=== PATIENT | female | born 1985 | race Caucasian/White ===

== ENCOUNTER 2017-06-25 19:21 | Day surgery (SDC) | payer BC ==
[2017-06-25 20:00] VITALS: BP 119/75; TEMP 98.6; BMI 28.9
[2017-06-25] MEDS ORDERED: Morphine 10 MG/ML VIAL IM PRN (20:53)
--- NOTE | 2017-06-26 00:28 | PRG ---
DATE OF SERVICE: 06/25/2017 PRIMARY OB: Lily Soto MD CHIEF COMPLAINT: Abdominal pains. HISTORY OF PRESENT ILLNESS: The patient is a 31-year-old female with an intrauterine at 36 weeks and 4 days, who is presenting to Labor and Delivery with a 1-day history of abdominal pa ins that she reports is being moderately intense. The patient denies any vaginal bleeding or leakage of fluid. She has been nauseous and having infrequent vomiting over the last several weeks. She den ies any fever, fall, headache, chest pain, or shortness of breath. She has had some constipation and has had a rash on her back during this that seems to have improved. Denies any hip proble ms, muscle weakness, vaginal bleeding, urinary urgency. PAST MEDICAL HISTORY: Seasonal allergies. PAST SURGICAL HISTORY: She has had a breast reduction surgery. She has had an appendix removed and had a lumpectomy. SOCIAL HISTORY: Reports alcohol use before the . ALLERGIES: No known drug allergies. MEDICATIONS: vitamins. OB LABORATORY DATA: Blood type is B positive, antibody screen is negative. HIV nonreactive. In the first and third trimester, RPR nonreactive. In the first and third trimester, hepatitis B surface a ntigen nonreactive. She is rubella immune. Her one-hour Glucola was 143 with a normal 3-hour test. REVIEW OF SYSTEMS: Per HPI. PHYSICAL EXAMINATION: VITAL SIGNS: Blood pressure 119/75, heart rate of 109, respiratory rate of 18, temperature 98.6. GENERAL: She appears to be in no acute distress. She is alert and oriented, and cooperative and ple asant to interact with. HEENT: Head is normocephalic, atraumatic. LUNGS: Clear to auscultation bilaterally. HEART: Regular rate and rhythm. ABDOMEN: Soft in between contractions and gravid. EXTREMITIES: Nontender, nonedematous. CERVICAL EXAM: Per nursing staff, it is closed and thick with -2 station, which is unchanged after a n hour and 15 minutes. heart tracing performed for threatened labor. Baseline is noted to be in the 130s with moderat e long-term variability, positive accelerations and no decelerations. Contractions are irregular, la sting anywhere from 2 to 4 or 6 minutes. ASSESSMENT AND PLAN: The patient is a 31-year-old female with an intrauterine at 36 weeks and 4 days and threatened labor with a closed cervix. Fetus is reassuring. The patient has be en given 6 mg of morphine IM to help with comfort with the contractions. She lives here locally and has had no change in her cervix, remained closed and thick after an hour and is comfortable going shira e with pain control with instructions to return, should things become more frequent or worsen or for water breaks or has any other concerns. Fetus has a category 1 tracing and reactive NST.
== END 2017-06-25 21:50 | disposition home or self-care (01) ==
LOC: L&D/OP 19:21
PROVIDERS: ATTEND Student in an Organized Health Care Education/Training Program
DX: O99.89 Other specified diseases and conditions complicating pregnancy, childbirth and the puerperium (principal); R10.9 Unspecified abdominal pain; O99.52 Diseases of the respiratory system complicating childbirth; J30.2 Other seasonal allergic rhinitis; Z3A.36 36 weeks gestation of pregnancy; Z79.899 Other long term (current) drug therapy; Z88.0 Allergy status to penicillin
CPT/HCPCS: J2270

== ENCOUNTER 2017-07-14 10:10 | Inpatient (IN) | payer BC, OTHER, SELFPAY ==
--- NOTE | 2017-07-14 08:37 | PDOC.LDHP ---
Labor and Delivery H&P Chief complaint: scheduled section HPI: 32yo at 39w2d by LMP here for PCS due to suspected CPD and macrosomia. No complaints. Current gestational age (weeks): 39 Due date: 07/19/17 Dating criteria: last menstrual period Grav: 1 Para: 0 Current complications: none Abnormal US findings: No Current medications: pre-fabricio vitamins Previous surgical history: appendectomy, other (breast reduction, breast lumpectomy) Allergies/Adverse Reactions: Allergies Allergy/AdvReac Type Severity Reaction Status Date / Time Penicillins Allergy Rash Verified 07/14/17 11:08 Social history: none - Physical Exam Vital signs reviewed and normal: yes General: NAD Heart: RRR Lungs: CTAB Abdomen: gravid Extremeties: no edema FHT: category 1 - OB Labs Blood type: B RH: positive Antibody Screen: negative HIV: negative RPR: negative HEPSAg: negative 1 hour GCT: positive 3 hour GTT: negative GBS: negative Rubella: immune - Assessment L&D Assessment: scheduled primary section - Plan Plan: admit to L&D, to OR for section, informed consent obtained, anesthesia consult for pain management
[2017-07-14 11:14] VITALS: BMI 29.0
[2017-07-14] MEDS ORDERED: Oxytocin 10 UNITS/ML VIAL ONE ×3 (11:40→12:42)
[2017-07-14] MEDS ORDERED: PHENYLEPHRINE-NS 100 MCG/ML 10 ML SYRINGE ONE (11:40)
[2017-07-14] MEDS ORDERED: Ondansetron HCl/PF 4 MG/2 ML Vial ONE ×4 (11:40→18:03)
[2017-07-14] MEDS ORDERED: Morphine PF 1 MG/ML SYR ONE (11:40)
[2017-07-14] MEDS ORDERED: ePHEDrine/0.9% NaCl/PF SYRINGE 50 mg/10 ml ONE ×2 (11:40→18:03)
[2017-07-14] MEDS ORDERED: Dexamethasone 4 mg/ml Vial ONE (11:40)
[2017-07-14] MEDS ORDERED: Ketorolac Tromethamine 30 MG/ML VIAL ONE ×2 (11:41→18:03)
[2017-07-14] MEDS ORDERED: HYDROmorphone 2 MG/ML VIAL SLOW IVP PRN (12:02)
[2017-07-14] MEDS ORDERED: Ondansetron HCl/PF 4 MG/2 ML Vial IVP PRN ×2 (12:02)
[2017-07-14] MEDS ORDERED: Meperidine HCl/PF 25 MG/ML VIAL SLOW IVP PRN (12:02)
[2017-07-14] MEDS ORDERED: Naloxone HCl 0.4 mg/ml Vial IVP PRN ×2 (12:02)
[2017-07-14] MEDS ORDERED: Eucerin (Mineral Oil/Petrolatum,White) 30 gm Jar TOP PRN (12:02)
[2017-07-14] MEDS ORDERED: Promethazine HCl 25 MG/ML VIAL IM PRN (12:02)
[2017-07-14] MEDS ORDERED: diphenhydrAMINE 50 MG/ML VIAL IVP PRN (12:02)
[2017-07-14] MEDS ORDERED: Naloxone HCl 0.4 mg/ml Vial IV PRN (12:02)
[2017-07-14] MEDS ORDERED: Promethazine HCl 25 MG SUPP PR PRN (12:02)
[2017-07-14] MEDS ORDERED: Ketorolac Tromethamine 30 MG/ML VIAL IVP SCH (12:15)
[2017-07-14] MEDS ORDERED: CEFAZOLIN 1 GM VIAL ONE (12:15)
[2017-07-14] MEDS ORDERED: Communication Order-Pharmacy FS SCH (12:15)
[2017-07-14] MEDS ORDERED: Carboprost 250 MCG/ML AMP ONE (12:24)
[2017-07-14] MEDS ORDERED: Methylergonovine 0.2 MG/ML VIAL ONE ×2 (12:24)
[2017-07-14] MEDS ORDERED: Promethazine HCl 25 MG/ML VIAL ONE (12:32)
[2017-07-14 12:54] LABS: Mean Corpuscular HGB CONC 34.8 g/dL (32.0-36.0); Mean Corpuscular Hemoglobin 32.5 pg (27.0-31.0); Mean Corpuscular Volume 93.5 fl (81.0-99.0); Mean Platelet Volume 7.8 fL (7.4-10.4); Platelet Count 153 thou/uL (130-400); RBC Distribution Width 13.4 % (11.5-14.5); Red Blood Cell (RBC) Count 3.68 mill/uL (4.20-5.40)
[2017-07-14] MEDS ORDERED: Diphenoxylate HCl/Atropine Tablet PO PRN (13:02)
--- NOTE | 2017-07-14 13:03 | PDOC.OPDEL ---
OB Operative/Delivery Note Delivery Dr/Surgeon: Charles Assist: Linn Pre-Delivery Diagnosis: scheduled section Procedure/Post Delivery Dx: primary low transverse CS Weeks gestation: 39 Anesthesia: spinal - Findings A Sex: male Weight: 8 lb 7 oz - 1 min: 8 - 5 min: 9 - Additional Findings/Plan Placenta delivered: spontaneous findings: low transverse hysterotomy without extension, normal uterus, normal tubes, normal ovaries Estimated blood loss: 1000 Compilations/Other Findings: uterine atony, improved with pitocin and 1 dose hemabate 0.2mcg Post delivery plan: routine recovery
[2017-07-14 13:11] LABS: HBSAg Index 0.17 S/CO (0-0.99); Hep B Surf Ag Non-Reactive S/CO (NonReactive); Syphilis Antibody Nonreactive (Nonreactive); Syphilis Antibody Index 0.08 S/CO (<1.00 Non-Reactive)
[2017-07-14] MEDS ORDERED: Carboprost 250 MCG/ML AMP IM SCH (13:15)
[2017-07-14] MEDS ORDERED: Meperidine HCl/PF 25 MG/ML VIAL ONE (13:55)
--- NOTE | 2017-07-14 14:06 | OP ---
DATE OF PROCEDURE: 07/14/2017 PREOPERATIVE DIAGNOSES: 1. Intrauterine at 39 weeks and 2 days. 2. Suspected cephalopelvic disproportion and macrosomia. 3. Elective primary section. POSTOPERATIVE DIAGNOSES: 1. Intrauterine at 39 weeks and 2 days. 2. Suspected cephalopelvic disproportion and macrosomia. 3. Elective primary section. PROCEDURE: Primary low transverse section via Pfannenstiel skin incision. ANESTHESIA: Spinal. ATTENDING SURGEON: Lily Soto M.D. STONECUTTER APPRENTICE HAND: Ami Esteves D.O. ESTIMATED BLOOD LOSS: 1 liter. COMPLICATIONS: None. DRAINS: Thomas catheter. PATHOLOGY: None. FINDINGS: Male infant, cephalic presentation, clear amniotic fluid, weight and Apgars are currently pending. Normal uterus, ovaries and tubes bilaterally. Uterine atony occurred following delivery of placenta that was improved with Pitocin and 1 dose of Hemabate. OPERATIVE TECHNIQUE: The patient was taken to the operating room where spinal anesthesia was found t o be adequate. The patient was prepped and draped in a sterile fashion in the dorsal supine position with a leftward tilt. After ensuring adequacy of anesthesia, a Pfannenstiel skin incision was made and carried down to the underlying subcutaneous tissue with the Bovie. The fascia was nicked in the midline with the Bovie and carried laterally with the Mayos. The superior aspect of the fascia was t ented with 2 Kochers and dissected off the rectus with the Mayos. The inferior aspect of the fascia was tented with 2 Kochers and dissected off the rectus down to the pubic symphysis. Rectus were blun tly divided in the midline. The peritoneum was bluntly entered into and manually retracted. The Donna xis O retractor was placed and the lower uterine segment was incised in a transverse fashion and exte nded with the Adame maneuver. The infant's head was brought to the hysterotomy and delivered with fun steve pressure followed by the body. The infant's cord was clamped and handed to awaiting malinda t eam. Cord blood was obtained. Placenta was allowed to spontaneously deliver. At that time, there w as bleeding from the hysterotomy that was clamped off with ring forceps. The uterus was exteriorized , cleared of all clots and debris and noted to be atonic. Fundal massage was performed. Pitocin was infusing and Hemabate was called for and given. The hysterotomy was repaired with a #1 Monocryl in a running locking fashion x1 layer with excellent hemostasis. Uterine tone, improved. The posterior cul-de-sac was lapped out. The uterus placed back into the abdomen. Irrigation of the pelvis was p erformed and suctioned. Hemostasis was again noted of the hysterotomy as well as good uterine tone. The peritoneum was then closed with a 2-0 chromic in a running fashion. The rectus muscles were exa mined and noted to be hemostatic. The fascia was reapproximated with an 0 PDS x2 sutures with excell ent reapproximation. The subcutaneous tissue was irrigated and cauterized of any bleeders and reappr oximated with a 2-0 plain gut in a running fashion. The skin was closed with a 4-0 Monocryl in a sub cuticular fashion. Dermabond was applied as well as a pressure dressing. The patient tolerated the procedure well. Sponge, lap, needle counts were correct x2. The patient was taken to recovery room in stable condition. Patient received Ancef 2 grams prior to the procedure.
[2017-07-14] MEDS ORDERED: Bisacodyl 10 MG SUPP PR PRN (16:24)
[2017-07-14] MEDS ORDERED: Lanolin Ointment 7 GM TUBE TOP PRN (16:24)
[2017-07-14] MEDS ORDERED: Acetaminophen 325 MG TAB PO PRN (16:24)
[2017-07-14] MEDS ORDERED: diphenhydrAMINE 25 MG CAP PO PRN (16:24)
[2017-07-14] MEDS ORDERED: Morphine 5 MG/ML SYRINGE SLOW IVP PRN (16:58)
[2017-07-14] MEDS ORDERED: Morphine 5 MG/ML SYRINGE SLOW IVP SCH (17:00)
[2017-07-14] MEDS ORDERED: Dexamethasone 20 MG/5 ML VIAL ONE (18:03)
[2017-07-14] MEDS ORDERED: Adacel (T-DAP) 0.5 ML VIAL IM ONE (21:00)
[2017-07-14] MEDS: Ketorolac Tromethamine 30 MG/ML VIAL IVP PRN (21:52)
[2017-07-14] MEDS: Ferrous Sulfate 325 MG TAB PO SCH (21:53)
[2017-07-14] MEDS: Lactated Ringer's 1,000 ML IV SCH (21:53)
[2017-07-14] MEDS: Docusate Calcium (SURFAK) 240 MG CAP PO SCH (21:53)
[2017-07-15] MEDS ORDERED: Diphenoxylate HCl/Atropine Tablet PO PRN (00:15)
[2017-07-15] MEDS: Ibuprofen 800 MG TAB PO SCH ×4 (03:26→20:17)
[2017-07-15] MEDS: Ketorolac Tromethamine 30 MG/ML VIAL IVP PRN (03:26)
[2017-07-15] MEDS: Lactated Ringer's 1,000 ML IV SCH (03:28)
[2017-07-15 05:42] LABS: Hemoglobin 9.1 g/dL (12.0-16.0); Mean Corpuscular HGB CONC 34.7 g/dL (32.0-36.0); Mean Corpuscular Hemoglobin 32.1 pg (27.0-31.0); Mean Corpuscular Volume 92.4 fl (81.0-99.0); Platelet Count 130 thou/uL (130-400); RBC Distribution Width 13.2 % (11.5-14.5); Red Blood Cell (RBC) Count 2.84 mill/uL (4.20-5.40); White Blood Cell (WBC) Count 12.3 thou/uL (4.8-10.8)
[2017-07-15] MEDS: Docusate Calcium (SURFAK) 240 MG CAP PO SCH ×2 (08:06→21:09)
[2017-07-15] MEDS: Simethicone Chewable 80 MG TAB PO PRN (08:06)
[2017-07-15] MEDS: HYDROcodone/Acetaminophen 5/325 mg Tablet PO PRN ×4 (08:06→19:07)
[2017-07-15] MEDS: Prenatal Vitamin 1 TAB PO SCH (08:06)
[2017-07-15] MEDS: Ferrous Sulfate 325 MG TAB PO SCH ×2 (08:30→21:09)
--- NOTE | 2017-07-15 11:55 | PRG ---
DATE OF SERVICE: 07/15/2017 PRIMARY DIRECTOR OF SOCIAL MEDIA MARKETING: Dr. Lily Soto. HISTORY OF PRESENT ILLNESS: The patient is a 32-year-old female who is postoperative day #1 status p ost an elective primary for suspected cephalopelvic disproportion. The patient reports genaro t she is ambulating well, tolerating p.o. She has voided on her own since removal of the Thomas this morning and has good pain control. PHYSICAL EXAMINATION: VITAL SIGNS: This morning, blood pressure is 106/61, respiratory rate of 20, pulse of 59, temperatur e 97.6. GENERAL: She appears to be in no acute distress. She is alert and oriented, cooperative and pleasan t to interact with. ABDOMEN: Soft. Fundus is firm. Incision is clean, dry, and intact. EXTREMITIES: Nontender, nonedematous. LABORATORY DATA: Postoperative hemoglobin has an appropriate drop to 9.1 and hematocrit 26.2, and pl atelets of 130,000. ASSESSMENT AND PLAN: The patient is postoperative day #1 status post a primary section who is recovering well, anticipate inpatient postoperative care for the next 2-3 days.
[2017-07-16] MEDS: HYDROcodone/Acetaminophen 5/325 mg Tablet PO PRN ×6 (00:05→21:55)
[2017-07-16] MEDS: Ibuprofen 800 MG TAB PO SCH ×3 (06:05→21:10)
--- NOTE | 2017-07-16 08:01 | PRG ---
DATE OF SERVICE: 07/16/2017 The patient is a 32-year-old female, postoperative day #2, status post a primary elective f or suspected cephalopelvic disproportion. The patient reports that she is tolerating p.o., voiding o n her own, having decreased lochia and tolerable pain control with her medications. PHYSICAL EXAMINATION: VITAL SIGNS: Today, blood pressure is 107/65, temperature 98.5, pulse is 72, respiratory rate of 20. GENERAL: She appears to be in no acute distress. She is alert, oriented, cooperative, and pleasant to interact with. HEENT: Head is normocephalic, atraumatic. ABDOMEN: Appropriately soft. Fundus is firm. Incision is clean, dry, and intact with suture. EXTR EMITIES: Nontender, nonedematous. ASSESSMENT AND PLAN: Postoperative day 2, status post a primary elective . We will continu e routine postoperative care. Anticipate discharge tomorrow or the following day. Dr. Soto will be returning tomorrow.
[2017-07-16] MEDS: Prenatal Vitamin 1 TAB PO SCH (08:44)
[2017-07-16] MEDS: Docusate Calcium (SURFAK) 240 MG CAP PO SCH ×2 (08:44→21:09)
[2017-07-16] MEDS: Ferrous Sulfate 325 MG TAB PO SCH ×2 (08:45→21:09)
[2017-07-16] MEDS: Simethicone Chewable 80 MG TAB PO PRN (21:55)
[2017-07-17] MEDS: HYDROcodone/Acetaminophen 5/325 mg Tablet PO PRN ×3 (02:50→12:53)
[2017-07-17] MEDS: Ibuprofen 800 MG TAB PO SCH ×2 (06:07→12:49)
--- NOTE | 2017-07-17 06:34 | PDOC.PP ---
Post Progress Note Post Day #: 3 Subjective: Doing well, states ready for discharge PO intake tolerated: yes Flatus: yes Ambulation: yes Vital Signs (12 hours) Temp Pulse Resp BP 07/16/17 20:00 98.4 F 74 16 07/16/17 19:35 98.4 F 74 16 115/72 Weight Weight 154 lb - Physical Examination General: NAD Cardiovascular: no m/r/g Respiratory: clear to auscultation bilaterally Abdominal: + bowel sounds, no distention (skin sutured, dermabond.), appropriately TTP Extremities: negative homans (B) Skin: CS incision dry & intact Neurological: no gross focal deficits Psychiatric: A&Ox3 Result Diagrams: 07/15/17 05:04 Additional Labs: Post Labs Blood Type B POSITIVE 07/14/17 09:50 Hep Bs Antigen Non-Reactive S/CO (NonReactive) 07/14/17 09:50 (1) Delivery by section using transverse incision of lower segment of uterus Code(s): O82 - ENCOUNTER FOR DELIVERY WITHOUT INDICATION Status: Acute - Assessment/Plan Postop day 3, stable for discharge. Motrin and Ultram written for pain.
--- NOTE | 2017-07-17 06:44 | PDOC.EVN ---
Event Note - Event Note Event Note: DISCHARGE NOTE Patient was seen by me the AM of scheduled discharge, 07/17/17...which was postop day 3. She was doing well. Incision was C/D/I. She underwent a primary CS for suspected CPD, macrosomia...doing well. Surgeon was Dr Soto with [facility] as assist. Please see postop day 3 progress note for today's progress note. Disposition: Home with Dr Soto followup in 2-3 weeks
[2017-07-17] MEDS: Ferrous Sulfate 325 MG TAB PO SCH (07:57)
[2017-07-17] MEDS: Prenatal Vitamin 1 TAB PO SCH (07:57)
[2017-07-17] MEDS: Docusate Calcium (SURFAK) 240 MG CAP PO SCH (07:58)
[2017-07-17 09:21] VITALS: BP 108/73; TEMP 99.1
== END 2017-07-17 13:30 | disposition home or self-care (01) | DRG 766 ==
LOC: L&D 10:10 → 3SW 16:23
PROVIDERS: ADMIT Student in an Organized Health Care Education/Training Program; ATTEND Student in an Organized Health Care Education/Training Program
PROC: 10D00Z1 Extraction of Products of Conception, Low, Open Approach (ICD-10-PCS; principal; 2017-07-14)
DX: O66.2 Obstructed labor due to unusually large fetus (principal); O62.2 Other uterine inertia; Z37.0 Single live birth; Z3A.39 39 weeks gestation of pregnancy
CPT/HCPCS: 36415; 51702; 85027; 86780; 86850; 86900; 86901; 87340; J2270; J0690; J1100; J1200; J1885; J2175; J2210; J2274; J2405; J2550; J2590; J3490